=== PATIENT | female | born 1955 | race Caucasian/White ===

== ENCOUNTER 2019-09-16 07:26 | Day surgery (SDC) | payer BC ==
[~2019-09-16 07:26] MED LIST: Midazolam 1 MG/ML 2 ML SDV ONE; Propofol 200 MG/20 ML SDV ONE; fentaNYL 100 MCG/2 ML SDV ONE
[2019-09-16] MEDS ORDERED: Dextrose 5%-Lactated Ringers 1,000 ML IV SCH (08:00)
[2019-09-16] MEDS ORDERED: Glycopyrrolate 0.2 MG/ML 2 ML SDV IVPUSH ONE (08:30)
--- NOTE | 2019-09-22 11:10 | OR ---
DATE OF PROCEDURE: 09/16/2019 SURGEON: Sarmad Marie MD PREOPERATIVE DIAGNOSIS: Epigastric pain and discomfort, status post Junior-en-Y gastric bypass. 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 OPERATIVE PROCEDURE: Upper GI endoscopy with dilation of gastrojejunostomy (29100). ANESTHESIA: IV sedation. INDICATION FOR PROCEDURE: This patient is 11 years status post Junior-en-Y gastric bypass. Over time, she has had some difficulty maintaining weight, although this has been fairly stable for some time. An upper endoscopy was undertaken at [place], which failed to identify the gastrojejunostomy. The plan is to proceed with upper GI endoscopy with biopsy and/or dilation as indicated. Potential risks of the procedure including bleeding and perforation were discussed, and the patient wishes to proceed. DETAILS OF PROCEDURE: The patient was taken to the operating room and placed in the left lateral decubitus position. IV sedation was administered, after which the upper GI endoscope was passed orally through the length of the esophagus and into the gastric pouch. The patient was noted to have an extremely large gastric pouch which measured roughly 12 cm from the esophagogastric junction at its most dependent portion. Initially, the gastrojejunostomy was not overtly visible. This, however, was eventually identified fairly high up on the gastric pouch with most of the volume of the gastric pouch being below the gastrojejunostomy, which came off of the gastric pouch just below the esophagogastric junction to the right side of the gastric pouch. This was eventually able to be traversed. It was somewhat narrowed but not strikingly so, and the scope was able to be passed through that area, and the small bowel beyond that was unremarkable. At this point, the gastrointestinal catheter was centered across the anastomosis and inflated to 54 [place] size. This was held in position for 1 minute, after which balloon catheter was deflated and withdrawn. The area was then inspected. Minimal, if any, dilation had occurred. The patient does have a silastic band in that area, which would make it difficult to dilate the anastomosis in any definitive manner, as it would tend to recoil to the previous size once the dilator is removed. The patient was taken to the recovery room in satisfactory condition. At this point, I think this is a case we can most likely manage nonoperatively with the patient being able to reasonably maintain her weight fairly well. Will need to have her probably take a little bit more in the way of liquid calories, as within the dependent portion of the a small amount of old food was present with the anatomy not facilitating a direct exit of contents from the pouch through the gastrojejunostomy. The patient will be seen back in 1 month for recheck. Sarmad Marie MD Job #: [id number]
== END 2019-09-16 12:34 | disposition home or self-care (01) ==
LOC: JP.SDS 07:26
PROVIDERS: ATTEND Surgery
DX: K91.89 Other postprocedural complications and disorders of digestive system (principal); K31.4 Gastric diverticulum; E03.9 Hypothyroidism, unspecified; Z98.84 Bariatric surgery status; Z88.0 Allergy status to penicillin; Z88.2 Allergy status to sulfonamides
CPT/HCPCS: 43245; J2250; J2704; J3010; J3490; J7042